=== PATIENT | female | born 1995 | race African-American/Black ===

== ENCOUNTER 2020-03-20 06:10 | Observation (INO) | payer MEDICAID ==
[~2020-03-20] VITALS: Ht 160 cm; Wt 74.9 kg
[2020-03-20 07:13] VITALS: BP 122/70
[2020-03-21] MEDS ORDERED: prenatal vit PO (03:36)
== END 2020-03-20 10:45 | disposition home or self-care (01) ==
LOC: 4S 06:10
PROVIDERS: ADMIT Obstetrics & Gynecology; ATTEND Obstetrics & Gynecology
DX: Z03.818 Encounter for observation for suspected exposure to other biological agents ruled out (principal); O62.9 Abnormality of forces of labor, unspecified; Z3A.40 40 weeks gestation of pregnancy
CPT/HCPCS: 36415; 59025; 81001; 86592; 86762; 86901; 87340; 87635; G0378

== ENCOUNTER 2020-03-21 02:35 | Inpatient (IN) | payer MEDICAID ==
[~2020-03-21] VITALS: Ht 182.9 cm; Wt 73.9 kg
[2020-03-21] MEDS ORDERED: OXYTOCIN 30 UNITS/LACT RINGERS 500 ML IV ONE ×2 (03:09→15:49)
[2020-03-21] MEDS ORDERED: RINGERS SOLUTION,LACTATED 1,000 ML IV ONE (03:09)
[2020-03-21] MEDS ORDERED: FentaNYL CITRATE-PF 100 MCG/2 ML VIAL IVP PRN ×5 (03:15→15:30)
[2020-03-21] MEDS ORDERED: LIDOCAINE/PF 1% 30 ML VIAL INJ PRN (03:15)
[2020-03-21 03:25] VITALS: BP 134/70
[2020-03-21] MEDS ORDERED: prenatal vit PO (03:36)
[2020-03-21] MEDS: RINGERS SOLUTION,LACTATED 1,000 ML IV SCH ×4 (04:04→21:18)
[2020-03-21 04:21] LABS: BASOPHILS % (AUTO) 0.5 % (0.0-2.0); EOSINOPHILS % (AUTO) 0.1 % (1.0-6.0); HEMATOCRIT 26.5 % (36-46); HEMOGLOBIN 8.1 g/dL (12.0-16.0); LYMPHOCYTES # (AUTO) 0.9 K/uL (1.0-4.8); LYMPHOCYTES % (AUTO) 7.7 % (22.0-44.0); MEAN CORPUSCULAR HGB CONC 30.6 G/dL (31.0-37.0); MEAN CORPUSCULAR VOLUME 62 fL (80-100); MONOCYTES # (AUTO) 0.8 K/uL (0.1-1.0); MONOCYTES % (AUTO) 6.8 % (2.0-9.0); NEUTROPHILS # (AUTO) 9.6 K/uL (1.8-7.7); NEUTROPHILS % (AUTO) 84.9 % (40.0-70.0); PLATELET COUNT (AUTO)-OB 235 K/uL (150-450); RED BLOOD CELL COUNT(AUTO) 4.28 MIL/uL (4.00-5.20); RED CELL DISTRIBUTION WIDTH 18.3 % (11.5-14.5)
[2020-03-21] MEDS ORDERED: LIDOCAINE/PF 2% 5 ML VIAL ONE ×2 (05:25→14:39)
[2020-03-21] MEDS ORDERED: ROPIVACAINE HCL/PF 0.2% 100 ML ED ONE (05:25)
[2020-03-21] MEDS ORDERED: DiphenhydrAMINE HCL 50 MG/ML VIAL IVP PRN ×3 (05:45→15:30)
[2020-03-21] MEDS ORDERED: ONDANSETRON HCL 4 MG/2 ML VIAL IVP PRN ×3 (05:45→15:30)
[2020-03-21] MEDS ORDERED: NALBUPHINE HCL 10 MG/ML VIAL IVP PRN (05:45)
[2020-03-21] MEDS ORDERED: ROPIVACAINE HCL/PF 0.2% 100 ML ED PRN (05:45)
[2020-03-21] MEDS ORDERED: OXYTOCIN 30 UNITS/LACT RINGERS 500 ML IV PRN (07:00)
[2020-03-21] MEDS ORDERED: METHYLERGONOVINE MALEATE 0.2 MG/ML VIAL IM PRN (10:30)
[2020-03-21] MEDS ORDERED: AMPICILLIN SODIUM 2 GM/NS 100 ML IV ONE (13:30)
[2020-03-21] MEDS ORDERED: ACETAMINOPHEN 1000 MG/ISO-OSM 100 ML IV ONE (14:30)
[2020-03-21] MEDS ORDERED: ACETAMINOPHEN 1000 MG/ISO-OSM 0 ML IV ONE (14:39)
[2020-03-21] MEDS ORDERED: FentaNYL CITRATE-PF 100 MCG/2 ML VIAL ONE (14:39)
[2020-03-21] MEDS ORDERED: MORPHINE SULFATE/PF 0.5 MG/ML 10 ML AMP ONE (14:39)
[2020-03-21] MEDS ORDERED: CITRIC ACID/SODIUM CITRATE 30 ML SOLUTION UDCUP ONE (14:41)
[2020-03-21] MEDS ORDERED: METOCLOPRAMIDE HCL 5 MG/ML 2 ML VIAL IVP ONE (14:45)
[2020-03-21] MEDS ORDERED: GUM MASTIC/STORAX/MSAL/ALCOHOL LIQUID 0.67 ML VIAL TP ONE ×2 (14:56→15:33)
[2020-03-21] MEDS ORDERED: TRANEXAMIC ACID 1,000 MG in DEXTROSE 5%-WATER 50 ML IV ONE (15:15)
[2020-03-21] MEDS ORDERED: MORPHINE SULFATE 2 MG/ML SYRINGE IVP PRN ×2 (15:30)
[2020-03-21] MEDS ORDERED: NALOXONE HCL 0.4 MG/ML VIAL IVP PRN (15:30)
[2020-03-21] MEDS ORDERED: MEPERIDINE-PF 25 MG/ML VIAL IVP PRN (15:30)
[2020-03-21] MEDS ORDERED: DEXAMETHASONE SOD PHOS 4 MG/ML VIAL IVP PRN (15:30)
[2020-03-21] MEDS ORDERED: MORPHINE SULFATE 10 MG/ML SYRINGE IVP PRN ×2 (15:30)
[2020-03-21] MEDS ORDERED: OxyCODONE HCL/ACETAMINOPHEN 5-325 MG TABLET PO PRN (16:00)
[2020-03-21] MEDS ORDERED: LANOLIN 7 GM OINTMENT TP PRN (16:00)
[2020-03-21] MEDS: CeFAZolin SODIUM 500 MG in DEXTROSE 5%-WATER 50 ML IV SCH (17:37)
[2020-03-21] MEDS ORDERED: OXYGEN THERAPY IH SCH ×3 (20:00)
[2020-03-21] MEDS: ACETAMINOPHEN 1000 MG/ISO-OSM 100 ML IV SCH (21:18)
[2020-03-22] MEDS: CeFAZolin SODIUM 500 MG in DEXTROSE 5%-WATER 50 ML IV SCH ×3 (01:37→16:00)
[2020-03-22] MEDS: ACETAMINOPHEN 1000 MG/ISO-OSM 100 ML IV SCH (03:28)
[2020-03-22] MEDS ORDERED: ONDANSETRON HCL 4 MG/2 ML VIAL IVP ONE (06:53)
[2020-03-22] MEDS ORDERED: 0.9% SODIUM CHLORIDE 10 ML VIAL IVP ONE (06:53)
[2020-03-22] MEDS ORDERED: OXYTOCIN 10 UNITS/ML VIAL IM ONE (06:53)
[2020-03-22 06:55] LABS: BASOPHILS % (AUTO) 0.2 % (0.0-2.0); EOSINOPHILS % (AUTO) 0.3 % (1.0-6.0); HEMATOCRIT 23.3 % (36-46); LYMPHOCYTES # (AUTO) 1.2 K/uL (1.0-4.8); LYMPHOCYTES % (AUTO) 5.5 % (22.0-44.0); MEAN CORPUSCULAR HEMOGLOBIN 18.4 pg (26.0-34.0); MEAN CORPUSCULAR HGB CONC 29.7 G/dL (31.0-37.0); MEAN CORPUSCULAR VOLUME 62 fL (80-100); MONOCYTES # (AUTO) 1.5 K/uL (0.1-1.0); NEUTROPHILS # (AUTO) 19.1 K/uL (1.8-7.7); PLATELET COUNT (AUTO)-OB 225 K/uL (150-450); RED BLOOD CELL COUNT(AUTO) 3.76 MIL/uL (4.00-5.20); RED CELL DISTRIBUTION WIDTH 18.4 % (11.5-14.5)
[2020-03-22 06:59] LABS: HEMOGLOBIN 6.9 g/dL (12.0-16.0)
[2020-03-22] MEDS: RINGERS SOLUTION,LACTATED 1,000 ML IV SCH (07:33)
[2020-03-22] MEDS: MAGNESIUM HYDROXIDE SUSPENSION 30 ML UDCUP PO SCH ×2 (08:14→20:03)
[2020-03-22] MEDS: SOD FERRIC GLUC COMPLX/SUCROSE 125 MG in SODIUM CHLORIDE 0.9% 100 ML IV SCH (08:15)
[2020-03-22] MEDS: IBUPROFEN 800 MG TABLET PO PRN (15:33)
[2020-03-23] MEDS: MAGNESIUM HYDROXIDE SUSPENSION 30 ML UDCUP PO SCH (08:17)
[2020-03-23] MEDS: SOD FERRIC GLUC COMPLX/SUCROSE 125 MG in SODIUM CHLORIDE 0.9% 100 ML IV SCH (08:18)
[2020-03-23] MEDS: OxyCODONE HCL/ACETAMINOPHEN 5-325 MG TABLET PO PRN ×2 (10:44→15:36)
[2020-03-23 11:22] LABS: BASOPHILS % (AUTO) 0.3 % (0.0-2.0); EOSINOPHILS % (AUTO) 0.9 % (1.0-6.0); HEMATOCRIT 23.9 % (36-46); HEMOGLOBIN 7.3 g/dL (12.0-16.0); LYMPHOCYTES # (AUTO) 1.4 K/uL (1.0-4.8); LYMPHOCYTES % (AUTO) 6.8 % (22.0-44.0); MEAN CORPUSCULAR HGB CONC 30.5 G/dL (31.0-37.0); MEAN CORPUSCULAR VOLUME 62 fL (80-100); MONOCYTES # (AUTO) 1.2 K/uL (0.1-1.0); MONOCYTES % (AUTO) 6.1 % (2.0-9.0); NEUTROPHILS # (AUTO) 17.2 K/uL (1.8-7.7); PLATELET COUNT (AUTO)-OB 295 K/uL (150-450); RED BLOOD CELL COUNT(AUTO) 3.84 MIL/uL (4.00-5.20)
[2020-03-23 11:24] LABS: NEUTROPHILS % (AUTO) 85.9 % (40.0-70.0)
[2020-03-24] MEDS: IBUPROFEN 800 MG TABLET PO PRN ×3 (00:39→13:08)
[2020-03-24] MEDS: MAGNESIUM HYDROXIDE SUSPENSION 30 ML UDCUP PO SCH (09:00)
[2020-03-24] MEDS ORDERED: IBUP-2071 PO (09:57)
[2020-03-24] MEDS ORDERED: DOCU-275 PO (09:58)
[2020-03-24] MEDS ORDERED: FERR-89 PO (09:59)
[2020-03-24] MEDS ORDERED: PERCT PO (10:00)
[2020-03-24 11:01] LABS: BASOPHILS % (AUTO) 0.5 % (0.0-2.0); EOSINOPHILS % (AUTO) 2.6 % (1.0-6.0); HEMATOCRIT 24.4 % (36-46); HEMOGLOBIN 7.3 g/dL (12.0-16.0); LYMPHOCYTES # (AUTO) 1.4 K/uL (1.0-4.8); LYMPHOCYTES % (AUTO) 9.8 % (22.0-44.0); MEAN CORPUSCULAR HEMOGLOBIN 18.7 pg (26.0-34.0); MEAN CORPUSCULAR HGB CONC 29.8 G/dL (31.0-37.0); MEAN CORPUSCULAR VOLUME 63 fL (80-100); MONOCYTES # (AUTO) 0.9 K/uL (0.1-1.0); MONOCYTES % (AUTO) 6.3 % (2.0-9.0); NEUTROPHILS # (AUTO) 11.5 K/uL (1.8-7.7); NEUTROPHILS % (AUTO) 80.8 % (40.0-70.0); PLATELET COUNT (AUTO)-OB 323 K/uL (150-450); RED BLOOD CELL COUNT(AUTO) 3.88 MIL/uL (4.00-5.20)
== END 2020-03-24 13:40 | disposition home or self-care (01) | DRG 540 ==
LOC: 4S 02:35 → OBSVTOIN 02:35 → 4S 18:53
PROVIDERS: ADMIT Obstetrics & Gynecology Obstetrics; ATTEND Obstetrics & Gynecology Obstetrics
PROC: 10D00Z1 Extraction of Products of Conception, Low, Open Approach (ICD-10-PCS; principal; 2020-03-21)
DX: O69.81X0 Labor and delivery complicated by cord around neck, without compression, not applicable or unspecified (principal); D64.9 Anemia, unspecified; Z37.0 Single live birth; O99.02 Anemia complicating childbirth; Z3A.40 40 weeks gestation of pregnancy; O32.4XX0 Maternal care for high head at term, not applicable or unspecified
CPT/HCPCS: 86850; 86900; 86901; 87081; J0131; J0290; J0690; J2274; J2405; J2590; J2795; J2916; J3010; J3490; J7050; J7060; J7120